=== PATIENT | female | born 1995 | race Caucasian/White ===

== ENCOUNTER 2017-02-17 11:19 | Emergency (ER) | payer SELFPAY ==
[~2017-02-17] VITALS: Ht 170.2 cm; Wt 56.7 kg
[~2017-02-17 11:19] MED LIST: ACET1TAB43 PO; ACET325T38 PO; DOCU100C37 PO; FERR-74 PO; IBP600T1 PO; IBUP-1773 PO; METR500T PO; NITR100C PO; OXYC1TAB87 PO; PREN-115 PO
[2017-02-17 12:21] LABS: BILIRUBIN,URINE NEGATIVE (NEGATIVE); KETONES,URINE NEGATIVE (NEGATIVE); LEUKOCYTE ESTERASE ,URINE 3+ (NEGATIVE); NITRITE,URINE NEGATIVE (NEGATIVE); PH,URINE 6 (5-9); PROTEIN,URINE 3+ (NEGATIVE); UROBILINOGEN,URINE NORMAL (NORMAL)
[2017-02-17 12:42] LABS: WBC,URINE >100 /HPF
[2017-02-17] MEDS ORDERED: PHEN-640 PO (13:13)
[2017-02-17] MEDS ORDERED: CIPR-225 PO (13:13)
--- NOTE | 2017-02-17 13:13 | ED GU-Female ---
General Chief Complaint: -Female Stated Complaint: URINATING BLOOD//UNCONTROLLED URINATION Nursing Triage Note: Pt c/o waking this morning at 0900 and urinating blood. Pt also reports painful urination. Nursing Sepsis Screen: No Definite Risk History of Present Illness Time seen by provider: 11:55 Initial Comments Patient presents for hematuria and dysuria. Patient denies any recent urinary tract infections or history of urinary tract infections. Timing/Duration: this morning Severity/Quality: mild Location: suprapubic, right flank Radiation: none Activities at Onset: none Prior Genitourinary Problems: none Modifying Factors: Improves With Urinating Associated Symptoms: denies symptoms Allergies and Home Medications Allergies Coded Allergies: No Known Drug Allergies (Unverified , 08/22/12) Home Medications Ciprofloxacin HCl 500 Mg Tablet, 500 MG PO BID, #6 Ref 0 Prescribed by: DANNI SIMMONS on 02/17/17 1313 Phenazopyridine HCl 200 Mg Tablet, 1 TAB PO Q8H PRN for PAIN-MILD, #6 Ref 0 Prescribed by: DANNI SIMMONS on 02/17/17 1313 Constitutional: no symptoms reported, see HPI EENTM: no symptoms reported, see HPI Respiratory: no symptoms reported, see HPI Cardiovascular: no symptoms reported, see HPI Gastrointestinal: no symptoms reported, see HPI Genitourinary: no symptoms reported, see HPI : No Musculoskeletal: no symptoms reported, see HPI Skin: no symptoms reported, see HPI Psychiatric/Neurological: No Symptoms Reported, See HPI Endocrine: No Symptoms Reported, See HPI Hematologic/Lymphatic: No Symptoms Reported, See HPI All Other Systemes Reviewed Negative Unless Noted: Yes Past Ojujzgr-Pcquin-Boynry Hx Patient Social History Alcohol Use: Denies Use Recreational Drug Use: No Smoking Status: Never a Smoker Recent Foreign Travel: No Contact w/Someone Who Travel: No Recent Infectious Disease Expo: No Recent Hopitalizations: No Immunizations Up To Date Tetanus Booster (TDap): Less than 5yrs Seasonal Allergies Seasonal Allergies: No Surgeries HX Surgeries: No Respiratory Hx Respiratory Disorders: No Cardiovascular Hx Cardiac Disorders: No Neurological Hx Neurological Disorders: No Reproductive System Hx Reproductive Disorders: No Sexually Transmitted Disease: Yes (chlamydia--tx'd) HIV/AIDS: No Female Reproductive Disorders: Denies Genitourinary Hx Genitourinary Disorders: No Gastrointestinal Hx Gastrointestinal Disorders: No Musculoskeletal Hx Musculoskeletal Disorders: No Endocrine Hx Endocrine Disorders: No HEENT HX ENT Disorders: No Cancer Hx Cancer: No Psychosocial Hx Psychiatric Problems: No Integumentary HX Skin/Integumentary Disorder: No Blood Transfusions Hx Blood Disorders: Yes (RH negative - received RhoGam ; Gestational Thrombocytopenia) Adverse Reaction to a Blood Tr: No Reviewed Nursing Assessment Reviewed/Agree w Nursing PMH: Yes Family Medical History Family Medial History: Patient reports no known family medical history. Physical Exam Vital Signs Vital Sign - Last 12Hours 02/17/17 12:03 Temp 96.4 Pulse 65 Resp 18 B/P (MAP) 108/70 Pulse Ox 100 O2 Delivery Room Air Capillary Refill : Less Than 3 Seconds General Appearance: WD/WN, no apparent distress Cardiovascular: normal peripheral pulses, regular rate, rhythm, no edema, no murmur Respiratory: chest non-tender, lungs clear, normal breath sounds Gastrointestinal: normal bowel sounds, non tender, soft, no organomegaly, no pulsatile mass, No distended, No guarding, No rebound, No tenderness Back: normal inspection, no vertebral tenderness, CVA tenderness (L) Extremities: normal range of motion, non-tender, normal inspection Neurologic/Psychiatric: no motor/sensory deficits, alert, normal mood/affect, oriented x 3 Progress/Results/Core Measures Results/Orders Lab Results Laboratory Tests Test 02/17/17 12:10 Range/Units Urine Color AGATHA H Urine Clarity VERY CLOUDY H Urine pH 6 5-9 Urine Specific [place] 1.010 L 1.016-1.022 Urine Protein 3+ H NEGATIVE Urine Glucose (UA) NEGATIVE NEGATIVE Urine Ketones NEGATIVE NEGATIVE Urine Nitrite NEGATIVE NEGATIVE Urine Bilirubin NEGATIVE NEGATIVE Urine Urobilinogen NORMAL NORMAL MG/DL Urine Leukocyte Esterase 3+ H NEGATIVE Urine RBC (Auto) 5+ H NEGATIVE Urine RBC TNTC H /HPF Urine WBC >100 H /HPF Urine Squamous Epithelial Cells 5-10 /HPF Urine Crystals NONE /LPF Urine Bacteria TRACE /HPF Urine Casts NONE /LPF Urine Mucus NEGATIVE /LPF Urine Culture Indicated YES My Orders Orders - DANNI SIMMONS Ua Culture If Indicated (02/17/17 12:12) Urine Bedside (02/17/17 12:37) Urine Culture (02/17/17 12:10) Vital Signs/I&O Vital Sign - Last 12Hours 02/17/17 12:03 Temp 96.4 Pulse 65 Resp 18 B/P (MAP) 108/70 Pulse Ox 100 O2 Delivery Room Air Blood Pressure Mean: 83 Point of Care Testing Urine -Bedside: Negative Departure Impression Impression: Primary Impression: Urinary tract infection Qualified Codes: N30.01 - Acute cystitis with hematuria Disposition: HOME, SELF-CARE Condition: Improved Departure-Patient Inst. Decision time for Depature: 13:10 Referrals: [facility] (PCP/Family) Primary Care Physician Patient Instructions: Urinary Tract Infection, Adult (DC) Add. Discharge Instructions: Increase water intake. Empty bladder every 2-3 hours. Drink 1 cup of cranberry juice daily. Take antibiotic as prescribed. Return to emergency department for increased abdominal or back pain, fevers, or new complaints. Follow up with Dr. Gonzalez if any concerns with IUD. All discharge instructions reviewed with patient and/or family. Voiced understanding. Scripts Phenazopyridine HCl (Pyridium) 200 Mg Tablet 1 TAB PO Q8H Y for PAIN-MILD, #6 TAB 0 Refills Prov: DANNI SIMMONS 02/17/17 Ciprofloxacin HCl (Cipro) 500 Mg Tablet 500 MG PO BID, #6 TAB 0 Refills Prov: DANNI SIMMONS 02/17/17 Copy Copies To 1: KELLEE GONZALEZ AMY ARNP Feb 17, 2017 13:13
[2017-02-17 13:19] VITALS: BP 112/78
--- OUTSIDE RECORDS SUMMARY | 2017-02-17 18:09 | XMS REPORT | Continuity of Care Document ---
Author Author [facility] Address Unknown Phone Unavailable Allergies Active Description Code Type Severity Reaction Onset Reported/Identified Relationship to Patient Clinical Status Yes No Known Drug Allergies [id number] Drug Allergy Unknown N/ A 08/22/2012 Medications Problems Date Dx Coded Attending Type Code Diagnosis Diagnosed By 08/22/2012 Ot 599.0 08/22/2012 Ot 616.10 08/22/2012 Ot 646.63 08/22/2012 Ot 789.00 09/08/2012 VANNESSA LOPEZ DO V23.7 , HIGH RISK W/ INSUFFICIENT CARE 09/08/2012 V23.7 , HIGH RISK W/ INSUFFICIENT CARE 09/08/2012 VANNESSA LOPEZ DO V23.7 , HIGH RISK W/ INSUFFICIENT CARE 09/08/2012 V23.7 , HIGH RISK W/ INSUFFICIENT CARE 09/08/2012 V23.7 , HIGH RISK W/ INSUFFICIENT CARE 09/08/2012 ALVARO VALDEZ APRN V23.7 , HIGH RISK W/ INSUFFICIENT CARE 09/08/2012 VANNESSA LOPEZ DO V23.7 , HIGH RISK W/ INSUFFICIENT CARE 09/08/2012 V23.7 , HIGH RISK W/ INSUFFICIENT CARE 09/08/2012 V23.7 , HIGH RISK W/ INSUFFICIENT CARE 09/08/2012 V23.7 , HIGH RISK W/ INSUFFICIENT CARE 10/07/2012 VANNESSA LOPEZ DO 656.13 RH NEGATIVE 10/07/2012 VANNESSA LOPEZ DO V06.1 TDAP DX 10/07/2012 VANNESSA LOPEZ DO V77.1 DIABETES SCREENING 10/07/2012 VANNESSA LOPEZ DO V78.0 ANEMIA SCREENING 10/07/2012 656.13 RH NEGATIVE 10/07/2012 V06.1 TDAP DX 10/07/2012 V77.1 DIABETES SCREENING 10/07/2012 V78.0 ANEMIA SCREENING 10/07/2012 656.13 RH NEGATIVE 10/07/2012 V06.1 TDAP DX 10/07/2012 V77.1 DIABETES SCREENING 10/07/2012 V78.0 ANEMIA SCREENING 10/07/2012 ALVARO VALDEZ APRN A 656.13 RH NEGATIVE 10/07/2012 ALVARO VALDEZ APRN A V06.1 TDAP DX 10/07/2012 ALVARO VALDEZ APRN A V77.1 DIABETES SCREENING 10/07/2012 ALVARO VALDEZ APRN A V78.0 ANEMIA SCREENING 10/07/2012 VANNESSA LOPEZ DO 656.13 RH NEGATIVE 10/07/2012 VANNESSA LOPEZ DO V06.1 TDAP DX 10/07/2012 VANNESSA LOPEZ DO V77.1 Diabetes Screening 10/07/2012 VANNESSA LOPEZ DO V78.0 Anemia Screening 10/07/2012 656.13 RH NEGATIVE 10/07/2012 V06.1 TDAP DX 10/07/2012 V77.1 Diabetes Screening 10/07/2012 V78.0 Anemia Screening 10/07/2012 656.13 RH NEGATIVE 10/07/2012 V06.1 TDAP DX 10/07/2012 V77.1 Diabetes Screening 10/07/2012 V78.0 Anemia Screening 10/07/2012 656.13 RH NEGATIVE 10/07/2012 V06.1 TDAP DX 10/07/2012 V77.1 Diabetes Screening 10/07/2012 V78.0 Anemia Screening 11/11/2012 ALVARO VALDEZ APRN A 648.20 COMPL OF - ANEMIA 11/11/2012 VANNESSA LOPEZ DO 648.20 COMPL OF - ANEMIA 11/11/2012 648.20 COMPL OF - ANEMIA 11/11/2012 648.20 COMPL OF - ANEMIA 11/11/2012 648.20 COMPL OF - ANEMIA 11/23/2012 VANNESSA LOPEZ DO 287.5 THROMBOCYTOPENIA UNSPECIFIED 11/23/2012 287.5 THROMBOCYTOPENIA UNSPECIFIED 11/23/2012 287.5 THROMBOCYTOPENIA UNSPECIFIED 11/23/2012 287.5 THROMBOCYTOPENIA UNSPECIFIED 12/12/2012 V28.6 GBS SCREENING 12/12/2012 V28.6 GBS SCREENING 12/12/2012 V28.6 GBS SCREENING 01/03/2013 VANNESSA LOPEZ DO Ot 285.9 01/03/2013 VANNESSA LOPEZ DO Ot 287.5 01/03/2013 VANNESSA LOPEZ DO Ot 648.21 01/03/2013 VANNESSA LOPEZ DO Ot 649.31 01/03/2013 VANNESSA LOPEZ DO Ot 659.71 01/03/2013 LOPEZ VANNESSA MAURICIO Ot 663.31 01/03/2013 VANNESSA LOPEZ DO Ot V23.7 01/03/2013 VANNESSA LOPEZ DO Ot V27.0 03/22/2013 ALLAN NOE, MATEO [place] Ot 287.5 03/22/2013 ALLAN NOE MATEO [place] Ot 649.33 05/27/2015 Ot V23.7 05/27/2015 Ot 287.5 05/27/2015 Ot 649.33 05/27/2015 Ot V23.7 05/27/2015 Ot 287.5 05/27/2015 Ot 649.33 05/27/2015 KELLEE GONZALEZ DO Ot O47.03 05/27/2015 FENECH KELLEE MAURICIO Ot Z3A.00 06/23/2015 FENECH KELLEE MAURICIO Ot D62 06/23/2015 FENECH KELLEE MAURICIO Ot O70.0 06/23/2015 FENECH KELLEE MAURICIO Ot O99.03 06/23/2015 FENECH KELLEE MAURICIO Ot O99.12 06/23/2015 FENECH KELLEE MAURICIO Ot Z37.0 06/23/2015 FENECH KELLEE MAURICIO Ot Z3A.38 06/23/2015 FENECH KELLEE MAURICIO Ot Z41.8 06/24/2015 Ot V23.7 06/24/2015 Ot 287.5 06/24/2015 Ot 649.33 Procedures Code Description [place] [address] ROUTINE VENIPUNCTURE 09/08/2012 80880 US OB ULTRASOUND 09/08/2012 19120 TSH 09/08/2012 37431 CBC 09/08/2012 16707 SYPHILLIS-COUNT INCLUDES THE [facility] 09/08/2012 34359 HIV ANTIBODIES (RML) 09/08/2012 87243 RUBELLA ANTIBODY, IGG 09/08/2012 74947 ANTIBODY SCREEN (order) 09/08/2012 50794 BLOOD TYPE/Rh FACTOR 09/08/2012 18686 CULTURE UROGENITAL 09/08/2012 87320 CULTURE URINE 70429 HEP B SURFACE ANTIGEN (STATE) 09/08/2012 90548 GC/CHLAM PROBE (STATE) 09/08/2012 21771 URINE TEST (IN-HOUSE) 09/08/2012 46822 TRICHOMONAS (IN-HOUSE) 09/08/2012 J2790 RHOGHAM 300 MCG 10/07/2012 06254 UA OB DIP 2012 81675 CBC 10/07/2012 88103 GLUCOSE LUCINA 1 HOUR 10/07/2012 5168227 ANTIBODY SCREEN (RESULT ONLY) 10/07/2012 20715 ANTIBODY SCREEN (order) 10/10/2012 15862 UA OB DIP 2012 19099 UA W/ CULTURE IF INDICATED 11/11/2012 87949 CBC 11/11/2012 61626 UA OB DIP 2012 12481 ROUTINE VENIPUNCTURE 11/23/2012 47853 CBC 11/23/2012 MEDIC [facility], 11/25/2012 98854 UA OB DIP 2012 31251 CULTURE GROUP B STREP VAG 12/14/2012 85595 UA OB DIP 2012 Results Encounters ACCT No. Visit Date/Time Discharge Status Pt. Type Provider Facility Loc./Unit Complaint [id number] 11/23/2012 14:49:00 11/23/2012 23: 59:59 CLS Outpatient VANNESSA LOPEZ DO [id number] 11/11/2012 09:03:00 11/11/2012 23: 59:59 CLS Outpatient ALVARO VALDEZ APRN [id number] 10/21/2012 13:45:00 10/21/2012 23: 59:59 CLS Outpatient [id number] 10/07/2012 11:25:00 10/07/2012 23: 59:59 CLS Outpatient [id number] 10/07/2012 11:25:00 10/07/2012 23: 59:59 CLS Outpatient VANNESSA LOPEZ DO [id number] 09/08/2012 08:58:00 09/08/2012 23: 59:59 CLS Outpatient [id number] 09/08/2012 08:58:00 09/08/2012 23: 59:59 CLS Outpatient VANNESSA LOPEZ DO [id number] 12/26/2012 13:22:00 Document Registration [id number] 12/12/2012 13:41:00 Document Registration [id number] 10/21/2012 13:45:00 Document Registration [id number] 10/07/2012 14:36:38 RECURRING
== END 2017-02-17 13:19 | disposition home or self-care (01) ==
LOC: EDUNIT# 11:19 → ER 11:22
DX: N39.0 Urinary tract infection, site not specified (principal); Z32.02 Encounter for pregnancy test, result negative; Z86.19 Personal history of other infectious and parasitic diseases
CPT/HCPCS: 81000; 84703; 87088; 87186; 99282

== ENCOUNTER → 2019-05-26 | Outpatient (CLI) | payer MEDICAID ==
[~2019-05-26] MED LIST changes: +CIPR-225 PO; -FERR-74 PO; +FERR325T18 PO; +PHEN-640 PO
--- NOTE | 2019-05-26 13:37 | Diagnostic Imaging Report ---
INDICATION: survey. TECHNIQUE: Multiple real-time grayscale images were obtained over the gravid uterus. COMPARISON: None FINDINGS: There is a single live fetus in a cephalic presentation. heart rate was recorded at 146 bpm. Placenta is posterior. Amniotic fluid volume is normal. survey demonstrates kidneys and stomach to be unremarkable. bladder was not well-visualized on today's study. brain is unremarkable. There is a four-chamber heart. There is a three-vessel cord with normal insertion. The spine is unremarkable. Biometrical measurements are as follows: Biparietal 4.5 cm, age 19 weeks 4 days. Head circumference 17.2 cm, age 19 weeks 6 days. Abdominal circumference 15.2 cm, age 20 weeks 3 days. Femur length 3.3 cm, age 20 weeks 2 days. Sonographic estimate age: 20 weeks 1 days. Sonographic estimated date of delivery: 10/12/19. Estimated Weight: 339 gm (+/- 50 gm). LMP percentile: 49%. heart rate: 146 beats per minute. number: 1 of 1. IMPRESSION: Single live IUP of 20 weeks 1 day gestational age. The estimated date of confinement sonographically is 10/12/2019. survey is unremarkable although bladder was not well-visualized. Followup could be performed. Dictated by: Dictated on workstation # [id number]
== END ==
LOC: RAD 11:05
PROVIDERS: ATTEND Obstetrics & Gynecology
DX: Z36.89 Encounter for other specified antenatal screening (principal); Z3A.20 20 weeks gestation of pregnancy
CPT/HCPCS: 76805

== ENCOUNTER 2019-10-01 17:40 | Outpatient (CLI) | payer MEDICAID ==
[~2019-10-01] VITALS: Ht 169 cm; Wt 83.0 kg
--- NOTE | 2019-10-01 17:25 | NUR ---
pt [facility]ULATORY TO [facility] WITH REPORTS OF LOSING MUCOUS PLUG WITH BLOOD TINGED DISCHARGE. PT WEIGHT OBTAINED AND TO ROOM 317. CLEAN CATCH UA OBTAINED AND PT GOWNED AND TO BED. PT ORIENTED TO ROOM
[2019-10-01 17:39] VITALS: BP 111/61
--- NOTE | 2019-10-01 17:39 | NUR ---
EXTERNAL FHM APPLIED FHR 120'S. ABD SOFT WITH FM NOTED TO PALPATION. REVIEWED HISTORY WITH PT. REPORTS LOSS OF MUCOUS PLUG AT 1715 HOURS. DENIES URINARY SYMPTOMS. PT AWAKE ALERT. S/O AT BEDSIDE.
[2019-10-01 18:12] LABS: BILIRUBIN,URINE NEGATIVE (NEGATIVE); CLARITY,URINE SL CLOUDY; COLOR,URINE YELLOW; GLUCOSE, URINE (UA) NEGATIVE (NEGATIVE); KETONES,URINE NEGATIVE (NEGATIVE); LEUKOCYTE ESTERASE ,URINE NEGATIVE (NEGATIVE); NITRITE,URINE NEGATIVE (NEGATIVE); PH,URINE 7.5 (5-9); PROTEIN,URINE TRACE (NEGATIVE)
[2019-10-01] MEDS ORDERED: PREN1TAB79 PO (18:17)
[2019-10-01 18:20] LABS: RBC,URINE RARE /HPF; WBC,URINE RARE /HPF
[2019-10-01 18:21] LABS: BACTERIA,URINE LARGE /HPF
--- NOTE | 2019-10-01 18:25 | NUR ---
FHR 120'S WITH ACCELS TO 150 LASTING APPROX 30 SECONDS NO CONTRACTIONS NOTED.
--- NOTE | 2019-10-01 18:30 | NUR ---
DR WEN CALLED AND STATUS REVIEWED FHR PATTERN, NO CONTRACTIONS AND CERVIX 1 CM AND THICK, UA REVIEWED. ORDER TO DISCHARGE TO HOME AND FOLLOW UP WITH DR GONZALEZ SCHEDULED.
--- NOTE | 2019-10-01 18:40 | NUR ---
HOME INSTRUCTIONS REVIEWED WITH PT. LABOR PRECAUTIONS REVIEWED. PT ACKNOWLEDGES UNDERSTANDING OF INSTRUCTIONS VERBALLY AND WITH HER SIGNATURE. PREPARING FOR DISCHARGE
--- NOTE | 2019-10-01 18:43 | NUR ---
PT DISCHARGED TO HOME AMBULATORY OFF UNIT ACCOMPANIED BY HER S/O. INSTRUCTED TO FOLLOW UP WITH DR GONZALEZ SCHEDULED
--- NOTE | 2019-10-02 08:17 | Physician Query-Final Dx ---
RONAK DANIELS 10/02/19 0817: Clinic Account Progress/Dx Physician Query: Please give diagnosis Please include # weeks gestation Date of Service Oct 01, 2019 at 17:40 MAGDIEL WEN MD 10/03/19 0758: Clinic Account Progress/Dx DIAGNOSIS: Diagnosis False labor at 36 weeks gestation RONAK DANIELS Oct 02, 2019 08:17 MAGDIEL WEN MD Oct 03, 2019 07:58
== END 2019-10-01 18:43 ==
LOC: LDRP 17:40 → WSo 17:40
PROVIDERS: ATTEND Obstetrics & Gynecology
DX: Z34.93 Encounter for supervision of normal pregnancy, unspecified, third trimester (principal); Z3A.37 37 weeks gestation of pregnancy
CPT/HCPCS: 81000; 87088; 99213

== ENCOUNTER 2019-10-10 19:25 | Inpatient (IN) | payer MEDICAID ==
[~2019-10-10] VITALS: Ht 165.1 cm; Wt 83.5 kg
[~2019-10-10 19:25] MED LIST changes: +PREN1TAB79 PO
--- NOTE | 2019-10-10 19:25 | NUR ---
JESSICA LINO presented to unit via ambulation from ED, accompanied by SO, with plan for INDUCTION. JESSICA LINO weighed, gowned, voided, and to bed. EFHM and TOCO applied, VS taken. JESSICA LINO oriented to bed controls, call light, TV, heat, and A/C controls.
[2019-10-10 19:37] VITALS: BP 111/64
--- NOTE | 2019-10-10 20:06 | NUR ---
Call to Dr Ambrose for orders. Induction orders obtained.
[2019-10-10] MEDS ORDERED: TERBUTALINE INJ 1 MG/ML (BRETHINE) AMP SC PRN (20:30)
[2019-10-10] MEDS ORDERED: MISOPROSTOL 100 MCG (CYTOTEC) TAB PO ONE (20:30)
[2019-10-10 20:33] LABS: BASOPHILS % (AUTO) 0 % (0-10); EOSINOPHILS # (AUTO) 0.1 10^3/uL (0.0-0.3); EOSINOPHILS % (AUTO) 1 % (0-10); HEMATOCRIT 38 % (35-52); HEMOGLOBIN 12.8 G/DL (11.5-16.0); LYMPHOCYTES % (AUTO) 12 % (12-44); MEAN CORPUSCULAR HEMOGLOBIN 32 PG (25-34); MEAN CORPUSCULAR HGB CONC 34 G/DL (32-36); MEAN CORPUSCULAR VOLUME 95 FL (80-99); MEAN PLATELET VOLUME 12.2 FL (7.4-10.4); MONOCYTES # (AUTO) 0.6 X 10^3 (0.0-1.0); MONOCYTES % (AUTO) 7 % (0-12); NEUTROPHILS # (AUTO) 6.9 X 10^3 (1.8-7.8); NEUTROPHILS % (AUTO) 81 % (42-75); PLATELET COUNT 106 10^3/uL (130-400); RED CELL DISTRIBUTION WIDTH 14.3 % (10.0-14.5); WHITE BLOOD COUNT 8.6 10^3/uL (4.3-11.0)
[2019-10-10] MEDS: NS IV 500 ML 500 ML IV SCH ×2 (20:37→21:03)
[2019-10-10] MEDS: D5 LR IV SOLUTION 1,000 ML IV SCH (20:57)
[2019-10-10 21:17] VITALS: BP 104/54
[2019-10-10] MEDS ORDERED: CATHETER FLUSH 10 ML SYR IV SCH (22:00)
[2019-10-10 22:47] VITALS: BP 103/58
[2019-10-11] VITALS (28 sets, daily range): BP systolic 84–165; BP diastolic 48–70
[2019-10-11] MEDS: MISOPROSTOL 100 MCG (CYTOTEC) TAB PO SCH ×2 (01:02→04:56)
[2019-10-11] MEDS: NS IV 500 ML 500 ML IV SCH ×2 (01:04→03:54)
[2019-10-11] MEDS: D5 LR IV SOLUTION 1,000 ML IV SCH (04:55)
[2019-10-11] MEDS ORDERED: HYDROmorphone 2 MG/ML VIAL (DILAUDID) IV ONE (05:15)
[2019-10-11] MEDS ORDERED: SUFENTA 0.6MCG/ML BUPIVA 0.125 100 ML ONE (07:01)
[2019-10-11] MEDS ORDERED: LIDOCAINE PF 2% 5 ML (XYLOCAINE) VIAL ONE (07:18)
[2019-10-11] MEDS ORDERED: fentaNYL INJECTION 100 MCG/2 ML AMP ONE (07:18)
[2019-10-11] MEDS ORDERED: BUPIVACAINE 0.25% 30 ML (SENSORCAINE) VIAL ONE (07:18)
[2019-10-11] MEDS ORDERED: LACTATED RINGERS 1,000 ML IV SCH (08:08)
[2019-10-11] MEDS ORDERED: NALOXONE 0.4 MG/ML 1 ML (NARCAN) VIAL IV PRN (08:15)
[2019-10-11] MEDS ORDERED: diphenhydrAMINE 50 MG/ML INJ (BENADRYL) IV PRN (08:15)
[2019-10-11] MEDS ORDERED: ONDANSETRON 4 MG/2 ML (SDV) Z0FRAN IV PRN (08:15)
[2019-10-11] MEDS ORDERED: EPIDURAL (SUFENTA 0.6MCG/ML BUPIVA 0.125%) 100 ML BAG EPI PRN (08:15)
--- NOTE | 2019-10-11 08:36 | History & Physical-OB ---
OB - Chief Complaint & HPI Date/Time Date of Admission: Date of Admission: Oct 10, 2019 at 7:25 pm Date seen by a Provider: Oct 11, 2019 Time Seen by a Provider: 07:55 Chief Complaint/History OB-Reason for Admission/Chief: Induction of Labor Hx : 7 Hx Para: 3 Expected Date of Delivery: Oct 16, 2019 Gestational Age in Weeks: 39 Gestational Age in Days: 1 Indication for induction: maternal discomfort Admission Nurse Assessment Rev: Yes History of Labs A neg Antibody neg RI RPR NR HBsAg NR HIV NR GC neg GBS neg Allergies and Home Medications Allergies Coded Allergies: No Known Drug Allergies (Unverified , 08/22/12) Home Medications Vit W-Ca,Fe,FA(<1 mg) 1 Each Tablet, 1 EACH PO DAILY, (Reported) Patient Home Medication List Home Medication List Reviewed: Yes OB - History Hx of Present Care: Yes Ultrasounds: Normal mid trimester US Obstetrical Complications: None Medical Complications: None Obstetrical History Hx Termination: Yes Hx Multiple Gestation: No Hx Stillbirth: No Hx Complication: Yes (low platelets) Hx Induced Hypertens: No Hx Maternal Gestational Diabet: No Delivery History Hx Dystocia: No Hx Large For Gestational Age I: No Hx Small for Gestational Age I: No Hx Blood Disorders: Yes (RH negative - received RhoGam ; Gestational Thrombocytopenia) Adverse Rxn to Tranfusion: No Patient Past Medical History none Social History/Family History HIV/AIDS: No Recent Infectious Disease Expo: No Sexually Transmitted Disease: Yes (chlamydia--tx'd) Alcohol Use: Denies Use Recreational Drug Use: No 2nd Hand Smoke Exposure: No Immunizations Hepatitis A: Yes Hepatitis B: Yes Tetanus Booster (TDap): Less than 5yrs OB - Admission Exam Physical Exam Vitals: Vital Signs 10/11/19 10/11/19 05:00 06:18 Temp 36.6 Pulse 64 Resp 18 B/P (MAP) 84/50 (61) HEENT: NCAT Heart: Rhythm Normal Lungs: Clear Abdomen: Gravid Extremities: Normal Reflexes: Normal Cervical Dilatation: 2cm Effacement: 75% Station: -1 Membranes: Intact Heart Rate: 130's Accelerations: Accelerations Present Decelerations: No Decelerations Short Term Variability: Present Fdc Variability: Average (6-25) Contractions on Admission: 6-10 Minutes Apart Intensity: Mild Gan Scoring Tool (Modified) Dilation (cm): 1-2cm (1) Effacement (%): 51-79% (2) Cervix Consistency: Soft (2) Cervix Position: Anterior (2) Add 1 point for: Each previous vaginal delivery (1) Gan Score: 12 Labs Laboratory Tests Test 10/10/19 19:50 Range/Units White Blood Count 8.6 4.3-11.0 10^3/uL Red Blood Count 3.95 L 4.35-5.85 10^6/uL Hemoglobin 12.8 11.5-16.0 G/DL Hematocrit 38 35-52 % Mean Corpuscular Volume 95 80-99 FL Mean Corpuscular Hemoglobin 32 25-34 PG Mean Corpuscular Hemoglobin Concent 34 32-36 G/DL Red Cell Distribution Width 14.3 10.0-14.5 % Platelet Count 106 L 130-400 10^3/uL Mean Platelet Volume 12.2 H 7.4-10.4 FL Neutrophils (%) (Auto) 81 H 42-75 % Lymphocytes (%) (Auto) 12 12-44 % Monocytes (%) (Auto) 7 0-12 % Eosinophils (%) (Auto) 1 0-10 % Basophils (%) (Auto) 0 0-10 % Neutrophils # (Auto) 6.9 1.8-7.8 X 10^3 Lymphocytes # (Auto) 1.0 1.0-4.0 X 10^3 Monocytes # (Auto) 0.6 0.0-1.0 X 10^3 Eosinophils # (Auto) 0.1 0.0-0.3 10^3/uL Basophils # (Auto) 0.0 0.0-0.1 10^3/uL OB - Assessment/Plan/Diagnosis Assessment Assessment: induction of labor Admission Dx 23 yo @ 39 weeks Elective induction of labor GBS neg Admission Status: Inpatient Order (span 2 midnights) Reason for Inpatient Admission: Induction of labor at 39 weeks Plan Plan: Induction Induction Method: per Misoprostol Protocol KELLEE GONZALEZ DO Oct 11, 2019 8:36 am
[2019-10-11] MEDS ORDERED: OXYTOCIN PRE-MIX DRIP 500 ML IV ONE ×2 (09:41→10:30)
--- NOTE | 2019-10-11 10:05 | NUR ---
pericare performed by this RN. vpad applied to perineum. ffu/1 light to moderate flow. 1007 assisted out of stirrups repositioned to high fowlers. 1009 epidural pump off. 1010 epidural catheter out tip intact. 1012 gown changed.
[2019-10-11] MEDS ORDERED: OXYTOCIN PRE-MIX DRIP 500 ML IV SCH (12:23)
[2019-10-11] MEDS ORDERED: MEASLES,MUMPS,RUBELLA 1 EA INJ SQ ONE (12:30)
[2019-10-11] MEDS ORDERED: WITCH HAZEL(TUCKS) 40 EA JAR TOP PRN (12:30)
[2019-10-11] MEDS ORDERED: BENZOCAINE/MENTHOL (DERMOPLAST) 60 ML CAN TP PRN (12:30)
[2019-10-11] MEDS ORDERED: HYDROcodone/APAP 5 MG/325 MG (LORTAB) TAB PO PRN (12:30)
[2019-10-11] MEDS ORDERED: TETANUS,DIPTH,PERTUSS P/F (BOOSTRIX) 0.5 ML VIAL IM ONE (12:30)
[2019-10-11] MEDS ORDERED: DIBUCAINE (NUPERCAINAL) 1% OINT 30 GM TOP PRN (12:30)
--- NOTE | 2019-10-11 12:35 | OB Labor & Delivery Record ---
L&D History Date of Service Date of Service: Oct 11, 2019 History Expected Date of Delivery: Oct 16, 2019 Gestational Age in Weeks: 39 Hx : 7 Hx Para: 3 Complications Events: Routine care Operative Indications (Cesarea: N/A-Vaginal Delivery Intrapartal Events: None L&D Stage1 Stage One Onset of Labor - Date: Oct 11, 2019 Monitors and Tracing Monitor Mode: External Heart Rate: 125 Station: +1 Vital Signs VS - Last 72 Hours, by Label 10/10/19 10/10/19 10/10/19 10/10/19 19:37 21:14 21:17 21:17 Temp 37.2 37.2 Pulse 103 77 77 Resp 18 18 18 B/P (MAP) 111/64 (80) 104/54 (71) Pulse Ox 98 98 O2 Delivery Room Air Room Air 10/10/19 10/11/19 10/11/19 10/11/19 22:47 01:16 02:15 03:23 Temp 36.5 Pulse 60 68 64 61 Resp 18 18 18 18 B/P (MAP) 103/58 (73) 98/50 (66) 92/53 (66) 165/56 (92) 10/11/19 10/11/19 10/11/19 10/11/19 04:10 05:00 05:18 06:18 Temp 36.6 Pulse 65 53 64 Resp 18 18 18 B/P (MAP) 93/55 (68) 118/70 (86) 84/50 (61) 10/11/19 10/11/19 10/11/19 10/11/19 07:45 07:55 08:00 08:05 Temp 36.8 Pulse 78 87 71 96 Resp 18 18 18 18 B/P (MAP) 114/57 (76) 116/63 (80) 105/58 (74) 102/55 (71) Pulse Ox 99 99 100 O2 Delivery Room Air 10/11/19 10/11/19 10/11/19 10/11/19 08:09 08:15 08:20 08:25 Pulse 72 87 67 71 Resp 18 18 18 18 B/P (MAP) 95/54 (68) 92/50 (64) 95/54 (68) 98/54 (69) Pulse Ox 94 97 96 95 10/11/19 10/11/19 10/11/19 10/11/19 08:30 08:33 08:37 08:52 Pulse 77 75 71 85 Resp 18 18 18 18 B/P (MAP) 89/50 (63) 87/54 (65) 89/54 (66) 88/51 (63) Pulse Ox 99 99 99 99 10/11/19 10/11/19 10/11/19 10/11/19 09:10 09:25 09:40 09:55 Pulse 72 57 80 129 Resp 18 18 18 18 B/P (MAP) 90/54 (66) 96/59 (71) 101/66 (78) 117/69 (85) Pulse Ox 96 94 94 94 10/11/19 10/11/19 10/11/19 10:08 10:22 10:37 Temp 36.8 36.4 36.7 Pulse 87 77 57 Resp 18 18 18 B/P (MAP) 98/48 (65) 97/53 (68) 96/59 (71) Pulse Ox 94 94 94 Rupture of Membranes Spontaneous Ruture of Membrane: Yes Amniotic Membrane Rupture Time: 0634 Amniotic Membrane Fluid Desc.: Clear Vaginal Bleeding Description: None Induction/Anesthesia Epidural Cath Placement - Time: 0758 Progress/Notes Patient progressed with no further augmentation to complete and +2 L&D Stage2 Stage Two Stage II Date: Oct 11, 2019 Monitors and Tracing Monitor Mode: External Heart Rate: 125 Monitor Accelerations: Uniform Monitor Decelerations: None Nursing Home Variability: Average (6-10) Short Term Variability: Present Position: Right Occiput Anterior Presentation: Vertex Cord Descript/Complications Cord Vessel Description: 3 Vessels Complications nuchal cord x 1 Delivery Type Infant Delivery Method: Spontaneous Vaginal Anterior Shoulder: Left Episiotomy/Perineal Laceration Laceraction(s)/Extensions: Yes Episiotomy Description: Perineal Extension/lac, 1st degree Location Modifier: Medial Degree (describe repair) 1st degree laceration repaired using 3-0 rapide Condition of Infant Delivery 1 minute Comment: 7 5 minute Comment: 9 Notes Live male infant weight 9 lbs 1 oz Condition of Infant Condition of Infant: Living Exam: No Observed Abnormalities Resuscitation Resuscitation: N/A - Spontaneous Resp L&D Stage3 Stage Three Stage III Date: Oct 11, 2019 Pictocin Pitocin Administration Comment: 30 mu wide open at delivery of placenta Placenta Delivery Placenta Delivery: Spontaneous Delivery Summary Summary Estimated blood loss (mL): 350 Attending at delivery: Kellee Gonzalez DO Condition of Delivery Examined: Cervix Examined, Uterus Explored Post Hemorrhage: No Condition of Mother stable Condition of (s) stable KELLEE GONZALEZ DO Oct 11, 2019 12:35
[2019-10-11] MEDS ORDERED: CATHETER FLUSH 10 ML SYR IV SCH (14:00)
[2019-10-11] MEDS: IBUPROFEN 600 MG (MOTRIN) TAB PO SCH (18:49)
[2019-10-11] MEDS: DOCUSATE SODIUM 100 MG (COLACE) CAP PO SCH (22:15)
[2019-10-12] MEDS: IBUPROFEN 600 MG (MOTRIN) TAB PO SCH ×3 (02:41→14:43)
[2019-10-12 05:00] VITALS: BP 99/57
[2019-10-12 06:18] LABS: BASOPHILS % (AUTO) 0 % (0-10); EOSINOPHILS # (AUTO) 0.1 10^3/uL (0.0-0.3); EOSINOPHILS % (AUTO) 1 % (0-10); HEMATOCRIT 37 % (35-52); HEMOGLOBIN 12.4 G/DL (11.5-16.0); LYMPHOCYTES # (AUTO) 1.1 X 10^3 (1.0-4.0); LYMPHOCYTES % (AUTO) 13 % (12-44); MEAN CORPUSCULAR HEMOGLOBIN 33 PG (25-34); MEAN CORPUSCULAR HGB CONC 33 G/DL (32-36); MEAN CORPUSCULAR VOLUME 98 FL (80-99); MONOCYTES # (AUTO) 0.7 X 10^3 (0.0-1.0); MONOCYTES % (AUTO) 9 % (0-12); NEUTROPHILS # (AUTO) 6.6 X 10^3 (1.8-7.8); NEUTROPHILS % (AUTO) 78 % (42-75); PLATELET COUNT 99 10^3/uL (130-400); RED CELL DISTRIBUTION WIDTH 14.3 % (10.0-14.5); WHITE BLOOD COUNT 8.5 10^3/uL (4.3-11.0)
[2019-10-12] MEDS ORDERED: FERROUS SULF 325 MG (IRON) TAB PO SCH (07:00)
[2019-10-12] MEDS ORDERED: PRENATAL VITAMIN 1 EA TAB PO SCH (07:00)
--- NOTE | 2019-10-12 07:17 | Anesthesia-Regional Post-Op ---
Regional Patient Condition Mental Status: Alert, Oriented x3 Circulation: Same as Pre-Op Headache: Absent Sensation: Full Recovery Motor Block: Absent Post Op Complications Complications None Follow Up Care/Instructions Patient Instructions None needed. Anesthesia/Patient Condition Patient is doing well, no complaints, stable vital signs, no apparent adverse anesthesia problems. No complications reported per nursing. LAVINIA RAMIREZ CRNA Oct 12, 2019 07:17
[2019-10-12 08:00] VITALS: BP 99/58
--- NOTE | 2019-10-12 08:10 | Postpartum Progress Note ---
Note Note Day # 1 Subjective: Patient is without complaints. Ambulating, voiding. Tolerating a regular diet without nausea or vomiting. Normal lochia. Pain is well controlled with oral pain medications. Objective: Physical Exam: General - Alert and oriented, no apparent distress Abdomen - Soft, appropriately tender to palpation, non-distended, fundus firm at umbilicus Extremities - no edema, negative John's bilaterally Assessment: PPD 1 NVD Acute blood loss anemia Plan: Routine care. Encourage breast feeding. Encourage ambulation. Ferrous sulfate supplementation. Plan for discharge today Vitals - Labs Vital Signs - I&O Vital Signs Date Time Temp Pulse Resp B/P (MAP) Pulse Ox O2 Delivery O2 Flow Rate FiO2 10/12/19 05:00 36.6 70 18 99/57 (71) 99 Room Air 10/11/19 23:30 36.4 66 18 104/67 (79) 98 Room Air 10/11/19 20:05 36.2 69 20 104/64 (77) 98 Room Air 10/11/19 16:00 36.9 91 20 95/54 (68) 10/11/19 10:37 36.7 57 18 96/59 (71) 94 10/11/19 10:22 36.4 77 18 97/53 (68) 94 10/11/19 10:08 36.8 87 18 98/48 (65) 94 10/11/19 09:55 129 18 117/69 (85) 94 10/11/19 09:40 80 18 101/66 (78) 94 10/11/19 09:25 57 18 96/59 (71) 94 10/11/19 09:10 72 18 90/54 (66) 96 10/11/19 08:52 85 18 88/51 (63) 99 10/11/19 08:37 71 18 89/54 (66) 99 10/11/19 08:33 75 18 87/54 (65) 99 10/11/19 08:30 77 18 89/50 (63) 99 10/11/19 08:25 71 18 98/54 (69) 95 10/11/19 08:20 67 18 95/54 (68) 96 10/11/19 08:15 87 18 92/50 (64) 97 Labs Laboratory Tests 10/12/19 05:40: White Blood Count 8.5, Red Blood Count 3.82L, Hemoglobin 12.4, Hematocrit 37, Mean Corpuscular Volume 98, Mean Corpuscular Hemoglobin 33, Mean Corpuscular Hemoglobin Concent 33, Red Cell Distribution Width 14.3, Platelet Count 99L, Mean Platelet Volume 13.0H, Neutrophils (%) (Auto) 78H, Lymphocytes (%) (Auto) 13, Monocytes (%) (Auto) 9, Eosinophils (%) (Auto) 1, Basophils (%) (Auto) 0, Neutrophils # (Auto) 6.6, Lymphocytes # (Auto) 1.1, Monocytes # (Auto) 0.7, Eosinophils # (Auto) 0.1, Basophils # (Auto) 0.0 KELLEE GONZALEZ DO Oct 12, 2019 08:10
[2019-10-12] MEDS ORDERED: IBUP-844 PO (08:12)
[2019-10-12] MEDS ORDERED: DIBU30OI TOP (08:12)
[2019-10-12] MEDS ORDERED: ACHD5005 PO (08:12)
[2019-10-12] MEDS ORDERED: BENZ78AE2 TP (08:12)
--- NOTE | 2019-10-12 08:14 | Discharge Inst-Women's Service ---
Discharge Inst-Women's Serv Depart Medication/Instructions New, Converted or Re-Newed RX: RX on Chart Final Diagnosis PPD 1 NVD Problems Reviewed?: Yes Consults/Follow Up Additional Follow Up: Yes Orders/Referrals Dr. Gonzalez in 6 weeks Activity Activity: Activity as Tolerated Driving Instructions: No Driving for 1 Week NO SMOKING: NO SMOKING Nothing Inside Vagina: No Douching, No [place], No Tampons Diet Discharge Diet: No Restrictions Symptoms to Report to : Bleeding Excessive, Pain Increased, Fever Over 101 Degrees F, Vaginal Bleeding Increase, Questions/Concerns For Any Problems or Questions: Contact Your Physician KELLEE GONZALEZ DO Oct 12, 2019 08:14
--- NOTE | 2019-10-12 08:30 | NUR ---
A.M. ASSESSMENT COMPLETED. VSS. CARING FOR IN ROOM. GOOD INTERACTION NOTED.
[2019-10-12] MEDS: DOCUSATE SODIUM 100 MG (COLACE) CAP PO SCH (09:01)
--- NOTE | 2019-10-12 13:00 | NUR ---
EATING STORK MEAL.
[2019-10-12 14:15] VITALS: BP 101/54
--- NOTE | 2019-10-12 14:25 | NUR ---
RHOGAM GIVEN IN LEFT VG SITE. SITE CLEAR.
--- NOTE | 2019-10-12 15:00 | NUR ---
DISCHARGE INSTRUCTIONS REVIEWED WITH COPY TO PT. STATES UNDERSTANDING OF ALL INSTRUCTIONS AND NEED TO F/U SCHEDULED AND NEEDED.
--- NOTE | 2019-10-12 15:20 | NUR ---
DISMISSED AMB FROM WITH TO FAMILY CAR IN STABLE CONDITION ACC BY S.O. AND STAFF.
[2019-10-12 17:43] VITALS: BP 101/54
== END 2019-10-12 15:20 | disposition home or self-care (01) | DRG 807 ==
LOC: LDRP 19:25
PROVIDERS: ADMIT Obstetrics & Gynecology; ATTEND Obstetrics & Gynecology
PROC: 3E0DXGC Introduction of Other Therapeutic Substance into Mouth and Pharynx, External Approach (ICD-10-PCS; 2019-10-10)
PROC: 10E0XZZ Delivery of Products of Conception, External Approach (ICD-10-PCS; principal; 2019-10-11)
PROC: 0HQ9XZZ Repair Perineum Skin, External Approach (ICD-10-PCS; 2019-10-11)
DX: O99.12 Other diseases of the blood and blood-forming organs and certain disorders involving the immune mechanism complicating childbirth (principal); D69.6 Thrombocytopenia, unspecified; O70.0 First degree perineal laceration during delivery; O69.81X0 Labor and delivery complicated by cord around neck, without compression, not applicable or unspecified; Z37.0 Single live birth; Z3A.39 39 weeks gestation of pregnancy
CPT/HCPCS: 36415; 83033; 85025; 86850; 86900; 86901

== ENCOUNTER → 2021-01-02 | Outpatient (CLI) | payer MEDICAID ==
[~2021-01-02] MED LIST changes: +ACHD5005 PO; +BENZ78AE5 TP; +DIBU30OI TOP; +IBUP-844 PO
--- NOTE | 2021-01-02 17:14 | Diagnostic Imaging Report ---
INDICATION: . 20 weeks and 4 days. TECHNIQUE: Multiple real-time grayscale images were obtained over the gravid uterus. COMPARISON: None FINDINGS: There is a single live intrauterine gestation in cephalic presentation. The cervix measures 3.5 cm in length and no funneling or endocervical fluid is seen. The placenta is anterior, with no previa. The stomach and a four-chamber heart are seen. heart rate measures 152 BPM. The kidneys are seen. The left ventricular outflow tract is seen. The right is not seen. The upper and lower spine is seen. The cord insertion is seen. A three-vessel cord is demonstrated with 2 uterine arteries. The bladder is seen. Bilateral lower extremities are seen. Bilateral lateral ventricles and the cerebellum are seen. The cisterna magna is seen. Nose and lips are seen. The profile is seen. A three-vessel cord is demonstrated in grayscale as well. Bilateral upper extremities are seen. Biometrical measurements are as follows: Biparietal 4.83 cm, age 20 weeks 5 days. Head circumference 18.34 cm, age 20 weeks 5 days. Abdominal circumference 15.92 cm, age 21 weeks 1 days. Femur length 3.37 cm, age 20 weeks 4 days. Sonographic estimate age: 20 weeks 6 days. Sonographic estimated date of delivery: 05/16/2021. Estimated Weight: 379 gm (+/- 55 gm). LMP percentile: 59%. heart rate: 152 beats per minute. The amniotic fluid is normal, with at least one vertical pocket measuring 4.7 cm. number: 1 of 1. IMPRESSION: 1. Single live intrauterine gestation measuring at 20 weeks and 6 days, which is within range of the clinical dates. 2. Normal heart rate and amniotic fluid. No abnormalities seen on the anatomy scan. Dictated by: Dictated on workstation # [id number]
== END ==
LOC: RAD 13:00
PROVIDERS: ATTEND Obstetrics & Gynecology
DX: Z34.02 Encounter for supervision of normal first pregnancy, second trimester (principal); Z3A.20 20 weeks gestation of pregnancy
CPT/HCPCS: 76805

== ENCOUNTER → 2021-05-02 21:25 | Inpatient (IN) | payer MEDICAID ==
[2021-05-01] VITALS (42 sets, daily range): BP systolic 76–123; BP diastolic 40–80
[2021-05-01 08:21] LABS: EOSINOPHILS % (AUTO) 0 % (0-10); HEMOGLOBIN 11.5 g/dL (11.5-16.0); MEAN CORPUSCULAR VOLUME 97 fL (80-99); WHITE BLOOD COUNT 4.8 10^3/uL (4.3-11.0)
[2021-05-01 08:23] LABS: BASOPHILS % (AUTO) 0 % (0-10); HEMATOCRIT 34 % (35-52); LYMPHOCYTES # (AUTO) 0.5 10^3/uL (1.0-4.0); LYMPHOCYTES % (AUTO) 10 % (12-44); MEAN CORPUSCULAR HEMOGLOBIN 33 pg (25-34); MEAN CORPUSCULAR HGB CONC 34 g/dL (32-36); MEAN PLATELET VOLUME 12.7 fL (9.0-12.2); MONOCYTES # (AUTO) 0.3 10^3/uL (0.0-1.0); MONOCYTES % (AUTO) 6 % (0-12); NEUTROPHILS % (AUTO) 83 % (42-75); PLATELET COUNT 86 10^3/uL (130-400)
--- NOTE | 2021-05-01 10:42 | History & Physical-OB ---
OB - Chief Complaint & HPI Date/Time Date of Admission: Date of Admission: May 01, 2021 at 6:28 am Date seen by a Provider: May 01, 2021 Time Seen by a Provider: 08:00 Chief Complaint/History OB-Reason for Admission/Chief: Induction of Labor Hx : 8 Hx Para: 4 Expected Date of Delivery: May 18, 2021 Gestational Age in Weeks: 37 Gestational Age in Days: 4 Admission Nurse Assessment Rev: Yes History of Labs A neg Antibody neg RI RPR NR HBsAg NR HIV NR GC neg GBS pos Allergies and Home Medications Allergies Coded Allergies: No Known Drug Allergies (Unverified , 08/22/12) Patient Home Medication List Home Medication List Reviewed: Yes Benzocaine/Menthol (Dermoplast Pain Relieving [place]) 78 Gm Aerosol, 56 ML TP UD PRN for PAIN- SEE INSTRUCTIONS Prescribed by: KELLEE GONZALEZ on 10/12/19811 Dibucaine (Dibucaine) 30 Gm Oint, 0 GM TOP UD PRN for PAIN- SEE INSTRUCTIONS Prescribed by: KELLEE GONZALEZ on 10/12/19811 Hydrocodone Bit/Acetaminophen (Lortab 5 Mg Tablet) 1 Tab Tab, 1 TAB PO Q4H PRN for PAIN-MODERATE (5-7) Prescribed by: KELLEE GONZALEZ on 10/12/19811 Ibuprofen (Ibu) 600 Mg Tablet, 600 MG PO Q6HR Prescribed by: KELLEE GONZALEZ on 10/12/19811 Vit W-Ca,Fe,FA(<1 mg) ( Vitamins) 1 Each Tablet, 1 EACH PO DAILY, (Reported) Entered as Reported by: CHANDLER KLEIN on 10/01/19 862 OB - History Hx of Present Care: Yes Ultrasounds: Normal mid trimester US Obstetrical Complications: Other (Gestational thrombocytopenia) Medical Complications: None Obstetrical History Hx Termination: Yes Hx Multiple Gestation: No Hx Stillbirth: No Hx Complication: Yes (low platelets) Hx Induced Hypertens: No Hx Maternal Gestational Diabet: No Delivery History Hx Dystocia: No Hx Large For Gestational Age I: No Hx Small for Gestational Age I: No Hx Blood Disorders: Yes (RH negative - received RhoGam ; Gestational Thrombocytopenia) Adverse Rxn to Tranfusion: No Patient Past Medical History none Social History/Family History 2nd Hand Smoke Exposure: No Immunizations Hepatitis A: No Hepatitis B: No Tetanus Booster (TDap): Less than 5yrs OB - Admission Exam Physical Exam Vitals: Vital Signs 05/01/21 08:00 Temp 36.1 Pulse 76 Resp 16 Pulse Ox 96 O2 Delivery Room Air HEENT: NCAT Heart: Rhythm Normal Lungs: Clear Abdomen: Gravid Extremities: Normal Reflexes: Normal Cervical Dilatation: 2cm Effacement: 75% Station: -1 Membranes: Intact Heart Rate: 130's Accelerations: Accelerations Present Decelerations: No Decelerations Short Term Variability: Present Director Of Event Management Variability: Average (6-25) Contractions on Admission: 6-10 Minutes Apart Intensity: Mild Labs Laboratory Tests Test 05/01/21 08:09 Range/Units White Blood Count 4.8 4.3-11.0 10^3/uL Red Blood Count 3.51 L 3.80-5.11 10^6/uL Hemoglobin 11.5 11.5-16.0 g/dL Hematocrit 34 L 35-52 % Mean Corpuscular Volume 97 80-99 fL Mean Corpuscular Hemoglobin 33 25-34 pg Mean Corpuscular Hemoglobin Concent 34 32-36 g/dL Red Cell Distribution Width 14.8 H 10.0-14.5 % Platelet Count 86 L 130-400 10^3/uL Mean Platelet Volume 12.7 H 9.0-12.2 fL Immature Granulocyte % (Auto) 2 % Neutrophils (%) (Auto) 83 H 42-75 % Lymphocytes (%) (Auto) 10 L 12-44 % Monocytes (%) (Auto) 6 0-12 % Eosinophils (%) (Auto) 0 0-10 % Basophils (%) (Auto) 0 0-10 % Neutrophils # (Auto) 4.0 1.8-7.8 10^3/uL Lymphocytes # (Auto) 0.5 L 1.0-4.0 10^3/uL Monocytes # (Auto) 0.3 0.0-1.0 10^3/uL Eosinophils # (Auto) 0.0 0.0-0.3 10^3/uL Basophils # (Auto) 0.0 0.0-0.1 10^3/uL Immature Granulocyte # (Auto) 0.1 0.0-0.1 10^3/uL Percent Immature Platelet Fraction 9.2 H 0.0-7.6 % OB - Assessment/Plan/Diagnosis Assessment Assessment: induction of labor Admission Dx 25 yo @ 37.4 Gestational thrombocytopenia GBS pos Admission Status: Inpatient Order (span 2 midnights) Reason for Inpatient Admission: IOL at term Plan Plan: Induction Induction Method: per Pitocin Protocol KELLEE GONZALEZ DO May 01, 2021 10:42 am
[2021-05-01] MEDS: HYDROmorphone 2 MG/ML VIAL (DILAUDID) IV PRN ×2 (17:56→19:21)
[2021-05-01] MEDS: METHYLERGONOVINE 0.2 MG/ML (METHERGINE) AMP IM ONE ×2 (19:25→20:12)
--- NOTE | 2021-05-01 20:22 | OB Labor & Delivery Record ---
L&D History Date of Service Date of Service: May 01, 2021 History Expected Date of Delivery: May 18, 2021 Gestational Age in Weeks: 37 Hx : 8 Hx Para: 4 Complications Events: Routine care (gestational thrombocytopenia) Operative Indications (Ces[place]: N/A-Vaginal Delivery Intrapartal Events: None L&D Stage1 Stage One Onset of Labor - Date: May 01, 2021 Monitors and Tracing Monitor Mode: External Heart Rate: 130 Monitor Accelerations: Uniform Monitor Decelerations: None Station: -1 Billet Checker Variability: Average (6-10) Short Term Variability: Present Vital Signs VS - Last 72 Hours, by Label 05/01/21 05/01/21 05/01/21 05/01/21 07:20 08:00 10:00 10:15 Temp 36.1 36.1 Pulse 76 76 83 76 Resp 16 16 16 16 B/P (MAP) 97/58 (71) 86/47 (60) 76/40 (52) Pulse Ox 96 96 O2 Delivery Room Air Room Air 05/01/21 05/01/21 05/01/21 05/01/21 10:30 10:45 11:00 11:15 Pulse 67 75 85 Resp 16 B/P (MAP) 83/46 (58) 81/47 (58) 98/54 (69) 05/01/21 05/01/21 05/01/21 05/01/21 11:30 11:45 12:00 12:15 Pulse 83 83 71 70 B/P (MAP) 123/80 (94) 123/80 (94) 103/57 (72) 104/57 (73) 05/01/21 05/01/21 05/01/21 05/01/21 12:30 12:45 13:00 13:15 Pulse 81 76 76 67 Resp 16 B/P (MAP) 108/56 (73) 105/55 (72) 105/55 (72) 106/54 (71) 05/01/21 05/01/21 05/01/21 05/01/21 13:30 13:45 14:00 14:15 Temp 37.2 36.7 Pulse 88 92 88 86 Resp 16 B/P (MAP) 99/50 (66) 101/50 (67) 102/58 (73) 102/53 (69) 05/01/21 05/01/21 05/01/21 14:30 14:45 18:45 Pulse 76 71 66 Resp 16 B/P (MAP) 93/55 (68) 83/45 (58) 107/53 (71) O2 Delivery Room Air Rupture of Membranes Spontaneous Ruture of Membrane: No Amniotic Membrane Rupture Time: 1105 Amniotic Membrane Fluid Desc.: Clear Vaginal Bleeding Description: Normal Show Progress/Notes Patient admitted for IOL due to thrombocytopenia. She was counciled about no epidural and was ok with not doing one and using iv pain meds. She had pitocin started and AROM performed. She progressed with 2 doses of IV dilaudid to complete and zero station. L&D Stage2 Stage Two Stage II Date: May 01, 2021 Monitors and Tracing Monitor Mode: External Heart Rate: 130 Monitor Accelerations: Uniform Monitor Decelerations: Variable Billet Checker Variability: Average (6-10) Short Term Variability: Present Position: Right Occiput Anterior Presentation: Vertex Cord Descript/Complications Cord Vessel Description: 3 Vessels Delivery Type Delivery Method: Spontaneous Vaginal Anterior Shoulder: Left Episiotomy/Perineal Laceration Laceraction(s)/Extensions: No Condition of Infant Delivery 1 minute Comment: 8 5 minute Comment: 9 Notes Live male infant weight 7lbs 4 oz Condition of Infant Condition of Infant: Living Exam: No Observed Abnormalities Resuscitation Resuscitation: N/A - Spontaneous Resp L&D Stage3 Stage Three Stage III Date: May 01, 2021 Pictocin Pitocin Administration mu/min: 14 Pitocin ml/hr: 14 Pitocin Administration Comment: 30 mu wide open at delivery of placenta Placenta Delivery Placenta Delivery: Spontaneous Delivery Summary Summary Estimated blood loss (mL): 300 Attending at delivery: Kellee Gonzalez DO Condition of Delivery Examined: Cervix Examined, Uterus Explored Post Hemorrhage: No Condition of Mother stable Condition of (s) stable KELLEE GONZALEZ DO May 01, 2021 20:22
--- NOTE | 2021-05-01 20:24 | Discharge Inst-Women's Service ---
Discharge Inst-Women's Serv Depart Medication/Instructions New, Converted or Re-Newed RX: RX on Chart Final Diagnosis PPD 2 NVD Problems Reviewed?: Yes Consults/Follow Up Additional Follow Up: Yes Orders/Referrals Dr. Gonzalez in 6 weeks Activity Activity: Activity as Tolerated Driving Instructions: No Driving for 1 Week NO SMOKING: NO SMOKING Nothing Inside Vagina: No Douching, No [place], No Tampons Diet Discharge Diet: No Restrictions Symptoms to Report to : Bleeding Excessive, Pain Increased, Fever Over 101 Degrees F, Vaginal Bleeding Increase, Questions/Concerns For Any Problems or Questions: Contact Your Physician KELLEE GONZALEZ DO May 01, 2021 20:24
[~2021-05-02] VITALS: Ht 170 cm; Wt 79.5 kg
[2021-05-02 03:30] VITALS: BP 108/56
[2021-05-02] MEDS: IBUPROFEN 600 MG (MOTRIN) TAB PO SCH ×3 (03:40→17:20)
[2021-05-02 07:21] LABS: EOSINOPHILS % (AUTO) 0 % (0-10); MEAN CORPUSCULAR VOLUME 98 fL (80-99); NEUTROPHILS # (AUTO) 5.4 10^3/uL (1.8-7.8); WHITE BLOOD COUNT 6.8 10^3/uL (4.3-11.0)
[2021-05-02 07:23] LABS: BASOPHILS % (AUTO) 0 % (0-10); HEMATOCRIT 38 % (35-52); HEMOGLOBIN 12.6 g/dL (11.5-16.0); LYMPHOCYTES # (AUTO) 0.8 10^3/uL (1.0-4.0); LYMPHOCYTES % (AUTO) 12 % (12-44); MEAN CORPUSCULAR HEMOGLOBIN 33 pg (25-34); MEAN CORPUSCULAR HGB CONC 33 g/dL (32-36); MEAN PLATELET VOLUME 12.6 fL (9.0-12.2); MONOCYTES # (AUTO) 0.5 10^3/uL (0.0-1.0); MONOCYTES % (AUTO) 8 % (0-12); NEUTROPHILS % (AUTO) 80 % (42-75); PLATELET COUNT 96 10^3/uL (130-400)
[2021-05-02 09:30] VITALS: BP 90/50
--- NOTE | 2021-05-02 09:41 | Postpartum Progress Note ---
[facility] 05/02/21 0941: Note Note Day # 1 Subjective: Patient is without complaints. Ambulating, urinating, no stool yet. Tolerating a regular diet without nausea or vomiting. Pain is well controlled with oral pain medications. Was bottle feeding baby during exam. Objective: Physical Exam: General - Alert and oriented, no apparent distress Extremities - no edema Heart- RRR, no murmurs Respiratory- CTAB, no wheezing Assessment: post- day # 1, status post vaginal delivery. Thrombocytopenia Recovering well otherwise Plan: Monitor thrombocytopenia for continual improvement Routine care. Encourage breast feeding. Encourage ambulation. Ferrous sulfate supplementation. Plan for discharge today Vitals - Labs Vital Signs - I&O Vital Signs Date Time Temp Pulse Resp B/P (MAP) Pulse Ox O2 Delivery O2 Flow Rate FiO2 05/02/21 03:30 37.0 94 18 108/56 (73) 95 Room Air 05/01/21 22:20 83 18 100/55 (70) Room Air 05/01/21 21:15 59 18 98/53 (68) Room Air 05/01/21 21:00 62 18 95/54 (68) Room Air 05/01/21 20:30 37.0 18 () Room Air 05/01/21 20:15 36.8 57 18 98/53 (68) Room Air 05/01/21 20:00 37.0 56 18 98/52 (67) Room Air 05/01/21 19:45 37.0 71 18 116/56 (76) Room Air 05/01/21 19:30 37.1 86 18 110/52 (71) Room Air 05/01/21 18:45 66 107/53 (71) Room Air 05/01/21 18:30 68 100/57 (71) 05/01/21 18:15 74 87/49 (62) 05/01/21 18:00 05/01/21 17:45 67 95/52 (66) 05/01/21 17:30 81 93/46 (62) 05/01/21 17:15 72 20 87/51 (63) 05/01/21 17:00 78 93/53 (66) 05/01/21 16:45 74 88/51 (63) 05/01/21 16:00 36.6 72 86/48 (61) 05/01/21 15:45 65 88/52 (64) 05/01/21 15:30 67 16 88/44 (59) 05/01/21 15:15 76 105/68 (80) 05/01/21 15:00 69 87/47 (60) 05/01/21 14:45 71 83/45 (58) 05/01/21 14:30 76 16 93/55 (68) 05/01/21 14:15 86 102/53 (69) 05/01/21 14:00 36.7 88 102/58 (73) 05/01/21 13:45 92 101/50 (67) 05/01/21 13:30 37.2 88 16 99/50 (66) 05/01/21 13:15 67 106/54 (71) 05/01/21 13:00 76 105/55 (72) 05/01/21 12:45 76 105/55 (72) 05/01/21 12:30 81 16 108/56 (73) 05/01/21 12:15 70 104/57 (73) 05/01/21 12:00 71 103/57 (72) 05/01/21 11:45 83 123/80 (94) 05/01/21 11:30 83 123/80 (94) 05/01/21 11:15 85 16 98/54 (69) 05/01/21 11:00 05/01/21 10:45 75 81/47 (58) 05/01/21 10:30 67 83/46 (58) 05/01/21 10:15 76 16 76/40 (52) 05/01/21 10:00 83 16 86/47 (60) I & O0 05/02/21 07:00 Intake Total 1022.2 ml Balance 1022.2 ml Labs Laboratory Tests 05/02/21 07:13: White Blood Count 6.8, Red Blood Count 3.84, Hemoglobin 12.6, Hematocrit 38, Mean Corpuscular Volume 98, Mean Corpuscular Hemoglobin 33, Mean Corpuscular Hemoglobin Concent 33, Red Cell Distribution Width 15.2H, Platelet Count 96L, Mean Platelet Volume 12.6H, Immature Granulocyte % (Auto) 1, Neutrophils (%) (Auto) 80H, Lymphocytes (%) (Auto) 12, Monocytes (%) (Auto) 8, Eosinophils (%) (Auto) 0, Basophils (%) (Auto) 0, Neutrophils # (Auto) 5.4, Lymphocytes # (Auto) 0.8L, Monocytes # (Auto) 0.5, Eosinophils # (Auto) 0.0, Basophils # (Auto) 0.0, Immature Granulocyte # (Auto) 0.1, Percent Immature Platelet Fraction 11.3H KELLEE GONZALEZ DO 05/02/21 0952: Note Note Verification and Attestation of Medical Student E/M Service A medical student performed and documented this service in my presence. I reviewed and verified all information documented by the medical student and made modifications to such information, when appropriate. I personally performed the physical exam and medical decision making. Kellee Gonzalez, May 02, 2021,09:52 [facility] May 02, 2021 09:41 KELLEE GONZALEZ DO May 02, 2021 09:52
[2021-05-02 13:00] VITALS: BP 95/59
[2021-05-02 18:15] VITALS: BP 97/53
[2021-05-02 20:00] VITALS: BP 96/53
[~2021-05-02 21:25] MED LIST changes: +AMPICILLIN 1,000 MG VIAL (IV USE) ONE; +AMPICILLIN 2,000 MG/14.8 ML (IV USE) ONE; +AMPICILLIN FOR IV USE 1,000 MG in WATER (STERILE) FOR INJECTION 7.4 ML IV SCH; +AMPICILLIN FOR IV USE 2,000 MG in WATER (STERILE) FOR INJECTION 14.8 ML IV ONE; +BENZOCAINE/MENTHOL (DERMOPLAST) 56 ML CAN TP PRN; +CATHETER FLUSH 10 ML SYR IV SCH; +D5 LR IV SOLUTION 1,000 ML IV ONE; +D5 LR IV SOLUTION 1,000 ML IV SCH; +DCS100C PO; +DIBUCAINE 1% OINTMENT 30 GM TUBE TOP PRN; +DOCUSATE SODIUM 100 MG (COLACE) CAP PO SCH; +FERROUS SULF 325 MG (IRON) TAB PO SCH; +HYDROcodone/APAP 5 MG/325 MG (LORTAB) TAB PO PRN; +HYDROmorphone 2 MG/ML VIAL (DILAUDID) ONE; +LIDOCAINE/EPI 2% 1:200,00 (XYLOCAINE) 20 ML VIAL ONE; +MEASLES,MUMPS,RUBELLA 1 EA INJ SQ ONE; +METHYLERGONOVINE 0.2 MG/ML (METHERGINE) AMP ONE; +MINERAL OIL CONCENTRATE 99.9% 15 ML UDC TOP PRN; +NALOXONE 0.4 MG/ML 1 ML (NARCAN) VIAL IV PRN; +OXYTOCIN PRE-MIX DRIP 500 ML IV ONE; +OXYTOCIN PRE-MIX DRIP 500 ML IV SCH; +PNV1TABL67 PO; +PRENATAL VITAMIN 1 EA TAB PO SCH; +TETANUS,DIPTH,PERTUSS P/F (BOOSTRIX) 0.5 ML VIAL IM ONE; +WATER (STERILE) FOR INJECTION 10 ML ONE; +WATER (STERILE) FOR INJECTION 20 ML ONE; +WITCH HAZEL(TUCKS) 40 EA JAR TOP PRN
== END | disposition home or self-care (01) | DRG 807 ==
LOC: LDRP 05-01 06:28
PROVIDERS: ADMIT Obstetrics & Gynecology; ATTEND Obstetrics & Gynecology
PROC: 10E0XZZ Delivery of Products of Conception, External Approach (ICD-10-PCS; principal; 2021-05-01)
PROC: 10907ZC Drainage of Amniotic Fluid, Therapeutic from Products of Conception, Via Natural or Artificial Opening (ICD-10-PCS; 2021-05-01)
DX: O99.12 Other diseases of the blood and blood-forming organs and certain disorders involving the immune mechanism complicating childbirth (principal); Z37.0 Single live birth; D69.6 Thrombocytopenia, unspecified; Z3A.37 37 weeks gestation of pregnancy; O99.824 Streptococcus B carrier state complicating childbirth
CPT/HCPCS: 36415; 83033; 85025; 86850; 86900; 86901